=== PATIENT | female | born 1950 | race Two or more races ===

== ENCOUNTER → 2021-06-09 | Outpatient (CLI) | payer MEDICARE ==
--- NOTE | 2021-06-09 17:25 | KCIC ---
EXAM: PA and Lateral Views of the Chest DATE: 06/09/2021 1:53 PM INDICATION: Reason: Hypokalemia, SOA for 3 weeks. / Spl. Instructions: / History: COMPARISON: No Prior FINDINGS: The heart is not enlarged. Mediastinal and hilar contours are normal. No focal parenchymal airspace opacity. No pleural effusion or pneumothorax. IMPRESSION: 1. No radiographic evidence for acute cardiopulmonary process. Electronically signed by: Deep Matos MD (06/09/2021 5:23 PM) [facility]
== END ==
LOC: KCIC 13:50
PROVIDERS: ATTEND Family Medicine
DX: E87.6 Hypokalemia (principal)
CPT/HCPCS: 71046

== ENCOUNTER → 2021-07-11 | Outpatient (CLI) | payer MEDICARE, MEDICAID ==
[~2021-07-11] VITALS: Ht 157.5 cm; Wt 72.7 kg
[2021-07-11] VITALS (11 sets, daily range): BP systolic 133–164; BP diastolic 62–82
[~2021-07-11] MED LIST: AMLO-186 PO; HEPARIN for IV BOLUS 10,000 UNIT/10 ML VIAL. IART ONE; HEPARIN for IV BOLUS 10,000 UNIT/10 ML VIAL. ONE; IODIXANOL 320 MG/ML 100 ML VIAL. IART ONE; IODIXANOL 320 MG/ML 100 ML VIAL. ONE; IV 1/2 NORMAL SALINE 1,000 ML IV SCH; LEVO75TA5 PO; LIDOCAINE 1% PF 2 ML VIAL. INJ ONE; LIDOCAINE 1% PF 2 ML VIAL. ONE; METO10TA81 PO; MIDAZOLAM HCL/PF 5 MG/5 ML VIAL. IV ONE; MIDAZOLAM HCL/PF 5 MG/5 ML VIAL. ONE; NITROGLYCERIN 200 MCG/2 ML SYRINGE FOR CATH/VASC LAB. IART ONE; NITROGLYCERIN 200 MCG/2 ML SYRINGE FOR CATH/VASC LAB. ONE; NITROGLYCERIN SUBLINGUAL 0.4 MG BOTTLE OF 25. SL PRN; OMEP20TA8 PO; SIMV40TA18 PO; VALS1TAB23 PO; VERAPAMIL 5 MG/2 ML VIAL. IART ONE; VERAPAMIL 5 MG/2 ML VIAL. ONE; fentaNYL PF VIAL 100 MCG/2 ML VIAL IV ONE; fentaNYL PF VIAL 100 MCG/2 ML VIAL ONE
[2021-07-11 07:42] LABS: HEMATOCRIT 38.9 % (36.0-47.0); HEMOGLOBIN 13.4 g/dL (12.0-15.5); RED BLOOD COUNT 4.66 x10^6/uL (3.50-5.40); RED CELL DISTRIBUTION WIDTH 13.3 % (11.5-14.5); WHITE BLOOD COUNT 10.4 x10^3/uL (4.0-11.0)
[2021-07-11 07:46] LABS: PROTHROMBIN TIME PATIENT 13.7 SEC (11.7-14.0)
[2021-07-11 07:51] LABS: CALCIUM 9.5 mg/dL (8.5-10.1); POTASSIUM 3.1 mmol/L (3.5-5.1)
--- NOTE | 2021-07-11 09:21 | PDOC ---
MODERATE SEDATION ASSESSMENT RISKS/ALTERNATIVES Risks/Alternatives Risks and alternatives of this type of sedation and procedure discussed with: RISK/ALTERNATIVES: Patient H & P ON CHART H & P H & P on chart and reviewed for co-morbid conditions and appropriate labs. H&P ON CHART: Yes STATUS PREG STATUS ASSESSED: N/A MEDS/ALLERGIES REVIEWED Meds/Allergies Reviewed Medications and Allergies including time and route of recently administered narcotics and sedatives. MEDS/ALLERGIES REVIEWED: Yes ASA RATING ASA RATING: II AIRWAY ASSESSMENT Airway Assessment Airway patency, oral function limitations, presence of caps, crowns, dentures, partials, and ability to extend neck assessed. AIRWAY ASSESSMENT: Yes MALLAMPATI SCORE MALLAMPATI SCORE: II PRE-SEDATION ASSESSMENT PRE-SEDATION ASSESSMENT: Yes ROSA ISELA HORNER MD Jul 11, 2021 09:20
--- NOTE | 2021-07-11 09:34 | CARD ---
MR#: [id number] Date of Study: 07/11/2021 Ordering Physician: ROSA ISELA BRADSHAW, Referring Physician: ROSA ISELA BRADSHAW Tech: JUAN RAMON FRANCO APPROVED REPORT Technologist: JUAN RAMON FRANCO Nurse: Fang Chisholm RN Procedure(s) performed: Left heart catheterization, selective coronary angiography and left ventricul ography via right transradial approach MODERATE SEDATION TIME: 25 MINUTES FLUORO TIME: 2.2 MIN DOSE: [id number] CONTRAST: 66CC VISI INDICATION The indication(s) include : unstable angina . [facility] Clinical Frailty Scale [facility] Clinical Frailty Scale: Mildly Frail Heart Failure Heart Failure: No CASE TECHNIQUE IV conscious sedation was used throughout procedure with appropriate monitoring and was performed in the presence of a registered nurse who was an independent trained observer other than the physician p erforming the procedure. During this case, Fluoroscopy and low osmolar contrast were used for imaging . Specimen(s) Removed: No Estimated Blood loss: 15 cc's. PROCEDURE NARRATIVE After explaining the risks, benefits and alternative options, informed consent was obtained from regine ent. Patient was brought to the cardiac Parts Analyst and right wrist was prepped and draped in the usual fashion after confirming a positive modified Lino's test. Arterial access was obtained in the righ t radial artery and a 6 Swedish sheath was inserted. 6 Swedish Mariano catheter was used to perform wayne ective angiography of the left and right coronary arteries. The same catheter was then used to perfo rm left ventriculography. Patient tolerated the procedure well. Hemostasis was achieved using TR ba nd. There were no immediate complications. The following findings were noted. FINDINGS 1. Hemodynamics: Left ventricular end-diastolic pressure of 23 mmHg. No pullback gradient across th e aortic valve. 2. Left ventriculography: Normal left ventricle systolic function with ejection fraction estimated at 70%. No significant mitral regurgitation seen. 3. Coronary angiography: a. The left main coronary artery arose from the left sinus of Valsalva, gave rise to the left anteri or descending and left circumflex arteries and did not show any significant stenosis. b. The left anterior descending artery did not show any significant stenosis. c. The left circumflex artery did not show any significant stenosis. d. The right coronary artery was a large and dominant vessel arising from the right sinus of Valsalv a that did not show any significant stenosis. The same catheter was then Conclusion 1. No significant coronary artery disease 2. Normal left ventricular systolic function with ejection fraction estimated at 70%. Signed by : Rosa Isela Bradshaw, Electronically Approved : 07/11/2021 09:34:14
--- NOTE | 2021-07-11 12:06 | NUR ---
discharge instructions reviewed with patient and family member. Pt stated understanding of instructions. Pt ambulated and tolerated PO. TR band removed and arm board reapplied. PIV intact for echocardiogram.
--- NOTE | 2021-07-11 13:27 | CARD ---
MR#: [id number] Date of Study: 07/11/2021 Ordering Physician: ROSA ISELA HORNER, Referring Physician: Bijan CISNEROS: Davey Buchanan RUST APPROVED REPORT EXAM: Two-dimensional and M-mode echocardiogram with Doppler and color Doppler. Other Information Quality : FairHR: 58bpm Rhythm : NSRTechnically limited study due to body habitus. INDICATION Chest Pain Normal coronary angiogram 07/11/21 2D DIMENSIONS Left Atrium(2D)4.2 (1.6-4.0cm)IVSd0.9 (0.7-1.1cm) Aortic Root(2D)3.0 (2.0-3.7cm)LVDd5.3 (3.9-5.9cm) LVOT Diameter1.8 (1.8-2.4cm)PWd0.9 (0.7-1.1cm) LVDs3.6 (2.5-4.0cm)FS (%) 31.9 % SV79.3 mlLVEF(%)59.6 (>50%) Aortic Valve AoV Peak Jarrod.156.0cm/sAoV VTI32.0cm AO Peak GR.9.7mmHgLVOT Peak Jarrod.114.8cm/s AO Mean GR.4mmHgAVA (VMAX)1.92cm2 Mitral Valve MV E Ekycwyit093.6cm/sMV E Peak Gr.7mmHg MV DECEL [id number] A Fdtfncxt930.4cm/s MV E Mean Gr.2mmHgE/A Ratio0.8 Pulmonary Valve PV Peak Perjoivx486.2cm/s Tricuspid Valve TR P. Bdnlvcwm781lo/sTR Peak Gr.29mmHg Pulmonary Vein S1 Vnfacsgt98.9cm/sD2 Lgpehegg86.8cm/s LEFT VENTRICLE The left ventricle is normal size. There is normal left ventricular wall thickness. The left ventricu lar systolic function is normal and the ejection fraction is within normal range. EF 55% There is nor mal LV segmental wall motion. Tissue Doppler imaging reveals mild left ventricular diastolic dysfunct ion. No left ventricle thrombus noted on this study. There is no ventricular septal defect visualized . There is no left ventricular aneurysm. There is no mass noted in the left ventricle. RIGHT VENTRICLE The right ventricle is normal size. There is normal right ventricular wall thickness. The right ventr icular systolic function is normal. ATRIA The left atrium is borderline dilated. The right atrium size is normal. The interatrial septum is int act with no evidence for an atrial septal defect or patent foramen ovale as noted on 2-D or Doppler i maging. AORTIC VALVE Aortic valve not well seen. Doppler and Color Flow revealed no significant aortic regurgitation. Ther e is no significant aortic valvular stenosis. There is no aortic valvular vegetation. MITRAL VALVE The mitral valve is normal in structure and function. There is no evidence of mitral valve prolapse. There is no mitral valve stenosis. Doppler and Color-flow revealed trace mitral regurgitation. TRICUSPID VALVE The tricuspid valve is normal in structure and function. Doppler and Color Flow revealed trace tricus pid regurgitation. The PA pressure was estimated at 34 mmHg. There is no tricuspid valve prolapse or vegetation. There is no tricuspid valve stenosis. PULMONIC VALVE The pulmonic valve is not well seen. Doppler and Color Flow revealed no pulmonic valvular regurgitati on. There is no pulmonic valvular stenosis. GREAT VESSELS The aortic root is normal in size. The ascending aorta is normal in size. The IVC is normal in size a nd collapses >50% with inspiration. PERICARDIAL EFFUSION There is no pleural effusion. There is no evidence of significant pericardial effusion. Critical Notification Critical Value: No <Conclusion> The left ventricular systolic function is normal and the ejection fraction is within normal range. EF 55% There is normal LV segmental wall motion. Signed by : Stephan Leal, Electronically Approved : 07/11/2021 13:26:18
== END | disposition home or self-care (01) ==
LOC: CCL 06:56
PROVIDERS: ATTEND Internal Medicine Cardiovascular Disease
DX: I20.0 Unstable angina (principal); R07.9 Chest pain, unspecified; I10 Essential (primary) hypertension; K21.9 Gastro-esophageal reflux disease without esophagitis; E03.9 Hypothyroidism, unspecified; E11.9 Type 2 diabetes mellitus without complications; Z79.899 Other long term (current) drug therapy; Z98.890 Other specified postprocedural states; Z88.0 Allergy status to penicillin
CPT/HCPCS: 36415; 80048; 85027; 85610; 93306; 93458; 99152; 99153; C1769; C1894; J1644; J2250; J3010; J3490; Q9967